=== PATIENT | male | born 1970 | race Caucasian/White ===

== ENCOUNTER 2023-07-05 19:16 | Emergency (ER) | payer SELFPAY ==
[~2023-07-05] VITALS: Ht 182.9 cm; Wt 100.0 kg
[2023-07-05] MEDS ORDERED: NS 1,000 ML IV ONE (19:30)
[2023-07-05] MEDS ORDERED: Haloperidol Lactate 5 MG/ML VIAL IM PRN (19:30)
[2023-07-05 19:38] LABS: BASO # 0.1 K/mm3 (0.0-0.2); BASO % 1.9 % (0.0-2.0); EOS # 0.1 K/mm3 (0.0-0.7); EOS % 2.4 % (0.0-4.0); GRAN # 2.1 K/mm3 (1.4-6.5); GRAN % 50.9 % (42.2-75.2); HEMATOCRIT 39.2 % (42.0-52.0); HEMOGLOBIN 13.4 g/dl (13.5-18.0); LYMPH # 1.4 K/mm3 (1.2-3.4); LYMPH % 33.8 % (20.0-51.0); MEAN CELL VOLUME 94 fl (80.0-100.0); MEAN CORPUSCULAR HEMOGLOBIN 32 pg (27-31); MEAN CORPUSCULAR HGB CONC 34 g/dl (33.0-37.0); MEAN PLATELET VOLUME 8.8 fl (7.4-10.4); MONO # 0.4 K/mm3 (0.1-0.6); MONO % 10.5 % (1.7-9.3); PLATELET COUNT 350 K/mm3 (130-400); RED BLOOD COUNT 4.17 M/mm3 (4.20-5.60)
[2023-07-05 19:52] LABS: ALANINE AMINOTRANSFERASE 34 U/L (0-55); ALCOHOL(ethanol),MEDICAL 236 mg/dL (0-10); ALKALINE PHOSPHATASE 73 U/L (40-150); ANION GAP 12 mmol/L (7-16); AST,SGOT 29 U/L (5-34); BILIRUBIN,TOTAL 0.1 mg/dL (0.2-1.2); BLOOD UREA NITROGEN 8 mg/dL (8-26); CALCIUM 8.3 mg/dL (8.4-10.2); CHLORIDE 111 mEq/L (98-107); CREATININE, serum 0.99 mg/dL (0.72-1.25); GLUCOSE 133 mg/dL (70-99); POTASSIUM 3.8 mEq/L (3.5-4.5); SODIUM 141 mEq/L (136-145); TOTAL PROTEIN 6.8 g/dl (6.2-8.1)
[2023-07-05 20:11] LABS: SALICYLATE < 5.0 mg/dL (15.0-30.0)
[2023-07-06 06:44] LABS: COLLECTION METHOD CLEAN CATCH
[2023-07-06 07:11] LABS: URINE APPEARANCE CLOUDY (CLEAR/HAZY); URINE BLOOD NEGATIVE (NEGATIVE); URINE COLOR YELLOW (YELLOW); URINE GLUCOSE NEGATIVE (NEGATIVE); URINE KETONE NEGATIVE (NEGATIVE); URINE NITRATE NEGATIVE (NEGATIVE); URINE PROTEIN(semi-quant) 1+ (NEGATIVE); URINE UROBILINOGEN 0.2 E.U/dL (0.2-1.0)
[2023-07-06 07:23] VITALS: TEMP 98.1
[2023-07-06 07:28] LABS: MUCOUS PRESENT (NOT PRESENT); SQUAMOUS EPITHELIAL 0-2 /hpf (0-10); URINE RBC 0-2 /hpf (0-2); URINE WBC 0-2 /hpf (0-2)
[2023-07-06 08:00] LABS: TRICYCLIC ANTIDEPRESS URINE NEGATIVE (NEGATIVE)
[2023-07-06 13:33] VITALS: BP 178/94; PULSE 55
== END 2023-07-06 13:35 | disposition home or self-care (01) ==
LOC: COL.ER 19:16
PROVIDERS: Personal Emergency Response Attendant
DX: T42.8X1A Poisoning by antiparkinsonism drugs and other central muscle-tone depressants, accidental (unintentional), initial encounter (principal); F10.129 Alcohol abuse with intoxication, unspecified; R45.851 Suicidal ideations; I44.0 Atrioventricular block, first degree; Y90.7 Blood alcohol level of 200-239 mg/100 ml
CPT/HCPCS: J7030